=== PATIENT | female | born 1975 | race Hispanic/Latino ===

== ENCOUNTER 2017-12-05 00:12 | Inpatient (IN) | payer BC ==
[~2017-12-05] VITALS: Ht 142.2 cm; Wt 61.7 kg
[2017-12-05 00:40] LABS: BASOPHILS % (AUTO) 0.1 % (0.0-5.0); EOSINOPHILS % (AUTO) 0.1 % (0.0-8.0); HEMATOCRIT 33.7 % (36-48); LYMPHOCYTES % (AUTO) 4.2 % (21.0-51.0); MEAN CORPUSCULAR HEMOGLOBIN 24.8 pg (27.0-33.0); MEAN CORPUSCULAR HGB CONC 32.2 g/dL (32.0-36.0); MEAN CORPUSCULAR VOLUME 77.1 fL (79-99); MONOCYTES % (AUTO) 5.6 % (3.0-13.0); PLATELET COUNT (AUTO) 303 K/uL (130-400); RED BLOOD CELL COUNT(AUTO) 4.38 MIL/uL (4.00-5.50); RED CELL DISTRIBUTION WIDTH 15.9 % (11.0-15.5)
[2017-12-05] MEDS ORDERED: KETOROLAC TROMETHAMINE 30MG/ML ONE (00:43)
[2017-12-05] MEDS ORDERED: ONDANSETRON HCL MDV 20ML 2 MG/ML VIAL ONE ×2 (00:46→02:44)
[2017-12-05] MEDS ORDERED: SODIUM CHLORIDE 0.9% 1000ML 1,000 ML IV ONE ×3 (00:46→03:55)
[2017-12-05 00:53] LABS: CREATININE 0.8 mg/dL (0.5-1.5); POTASSIUM 3.3 mmol/L (3.5-5.1)
[2017-12-05 00:57] LABS: ALBUMIN 3.9 g/dL (3.5-5.0); BILIRUBIN,TOTAL 0.3 mg/dL (0.2-1.0); TOTAL PROTEIN, SERUM 7.5 g/dL (6.0-8.3)
[2017-12-05] MEDS ORDERED: METRONIDAZOLE 500MG/100ML BAG 100 ML ONE (01:45)
[2017-12-05] MEDS ORDERED: LEVOFLOXACIN 750 MG/D5W 150 ML 150 ML ONE (01:45)
[2017-12-05] MEDS ORDERED: MORPHINE SULFATE 2 MG/ML 1ML SYG ONE (02:13)
[2017-12-05] MEDS ORDERED: POTASSIUM CHLORIDE 10% ELIXIR 20 MEQ/15 ML UDCUP ONE (02:13)
[2017-12-05 03:58] LABS: APPEARANCE,URINE Clear (CLEAR); BILIRUBIN,URINE Negative (NEGATIVE); COLOR,URINE Yellow (YELLOW); GLUCOSE, URINE (UA) Negative (NEGATIVE); KETONES,URINE 15 mg/dL (NEGATIVE); LEUKOCYTE ESTERASE ,URINE Negative (NEGATIVE); NITRATE,URINE Negative (NEGATIVE); OCCULT BLOOD,URINE Small (NEGATIVE); PROTEIN,URINE POS 1+ (NEGATIVE)
[2017-12-05 04:00] LABS: BACTERIA,URINE Rare /HPF (None Seen); HCG,QUAL RESULT NEGATIVE (NEGATIVE); SQUAMOUS EPITHELIAL CELL,UR Moderate /HPF (0-2); WBC,URINE None Seen /HPF (0-1)
[2017-12-05] MEDS ORDERED: POTASSIUM CHLORIDE 10% ELIXIR 20 MEQ/15 ML UDCUP PO PRN (04:15)
[2017-12-05] MEDS ORDERED: POTASSIUM CHLORIDE 20MEQ/100ML 100 ML IV PRN (04:15)
[2017-12-05] MEDS ORDERED: LIDOCAINE HCL-MPF 1% 2ML VIAL IVP PRN (04:15)
[2017-12-05] MEDS: SODIUM CHLORIDE 0.9% 1000ML 1,000 ML IV SCH ×2 (04:24→18:36)
[2017-12-05] MEDS ORDERED: MORPHINE SULFATE 4 MG/1ML SYG IVP PRN (04:30)
[2017-12-05] MEDS ORDERED: ACET500C44 PO (05:09)
[2017-12-05] MEDS ORDERED: [UNRECOGNIZED DRUG - CODE] PO (05:09)
[2017-12-05] MEDS ORDERED: HYDR-4060 PO (05:09)
[2017-12-05] MEDS ORDERED: RANI150C4 PO (05:09)
[2017-12-05] MEDS ORDERED: ACET250T28 PO (05:09)
[2017-12-05] MEDS ORDERED: LEVO100T12 PO (05:09)
[2017-12-05 08:00] VITALS: BP 118/69
[2017-12-05] MEDS ORDERED: METRONIDAZOLE 500 MG TABLET PO SCH (08:00)
[2017-12-05] MEDS: FAMOTIDINE/PF 20 MG/2 ML VIAL IV SCH ×2 (10:05→20:29)
[2017-12-05 11:00] VITALS: BP_SYST 119; BP_SYST 137; BP_DIAS 76; BP_DIAS 96
[2017-12-05] MEDS: ONDANSETRON HCL 4 MG/2 ML VIAL IVP PRN ×2 (12:12→20:30)
[2017-12-05] MEDS: METRONIDAZOLE 500MG/100ML BAG 100 ML IV SCH ×2 (14:10→23:04)
[2017-12-05 16:00] VITALS: BP_SYST 123; BP_SYST 152; BP_DIAS 70; BP_DIAS 95
[2017-12-05 19:00] VITALS: BP 128/78
[2017-12-05] MEDS ORDERED: MAGNESIUM 2GM PREMIX 50ML 50 ML IV PRN (20:00)
[2017-12-05] MEDS: POTASSIUM CHLORIDE 20 MEQ ERTAB PO PRN ×2 (20:30→23:23)
[2017-12-05] MEDS: KETOROLAC TROMETHAMINE 30MG/ML IM PRN (20:30)
[2017-12-05 23:59] VITALS: BP 114/68
[2017-12-06] VITALS (20 sets, daily range): BP systolic 101–134; BP diastolic 57–79
[2017-12-06] MEDS: KETOROLAC TROMETHAMINE 30MG/ML IM PRN (04:08)
[2017-12-06] MEDS: LEVOFLOXACIN 500 MG/D5W 100 ML 100 ML IV SCH (04:08)
[2017-12-06] MEDS: SODIUM CHLORIDE 0.9% 1000ML 1,000 ML IV SCH ×2 (04:08→08:48)
[2017-12-06 04:29] LABS: HEMATOCRIT 26.6 % (36-48); MEAN CORPUSCULAR HEMOGLOBIN 25.6 pg (27.0-33.0); MEAN CORPUSCULAR HGB CONC 33.2 g/dL (32.0-36.0); PLATELET COUNT (AUTO) 216 K/uL (130-400); RED BLOOD CELL COUNT(AUTO) 3.46 MIL/uL (4.00-5.50); RED CELL DISTRIBUTION WIDTH 15.8 % (11.0-15.5); WHITE BLOOD COUNT (AUTO) 7.7 K/uL (4.8-10.8)
[2017-12-06 04:51] LABS: ALBUMIN 2.6 g/dL (3.5-5.0); BILIRUBIN,TOTAL 0.3 mg/dL (0.2-1.0); CREATININE 0.6 mg/dL (0.5-1.5); MAGNESIUM 2.1 mg/dL (1.80-2.40); POTASSIUM 3.8 mmol/L (3.5-5.1); TOTAL PROTEIN, SERUM 5.5 g/dL (6.0-8.3)
[2017-12-06 06:10] LABS: INR 0.96 (0.85-1.15); PARTIAL THROMBOPLASTIN TIME 30.6 SEC (26.3-35.5); PROTHROMBIN TIME 10.1 SEC (9.6-11.6)
[2017-12-06] MEDS: METRONIDAZOLE 500MG/100ML BAG 100 ML IV SCH ×3 (06:33→21:44)
[2017-12-06] MEDS: FAMOTIDINE/PF 20 MG/2 ML VIAL IV SCH ×2 (08:48→21:44)
[2017-12-06] MEDS ORDERED: LACTATED RINGERS 1000ML 1,000 ML IV ONE (08:55)
[2017-12-06] MEDS ORDERED: DEXAMETHASONE SOD PHOSPHATE 10MG/ML 1ML VIAL ONE (09:24)
[2017-12-06] MEDS ORDERED: GLYCOPYRROLATE 0.2 MG/ML 5 ML VIAL ONE (09:24)
[2017-12-06] MEDS ORDERED: NEOSTIGMINE 5MG/5ML SYR IV ONE (09:24)
[2017-12-06] MEDS ORDERED: LIDOCAINE PF 2% 5ML ABBOJECT ONE (09:24)
[2017-12-06] MEDS ORDERED: ONDANSETRON HCL 4 MG/2 ML VIAL ONE (09:24)
[2017-12-06] MEDS ORDERED: SUCCINYLCHOLINE 200MG/10ML SYR ONE (09:24)
[2017-12-06] MEDS ORDERED: FENTANYL CITRATE PF 50 MCG/1 ML 2ML VIAL ONE ×2 (09:25→09:54)
[2017-12-06] MEDS ORDERED: MIDAZOLAM HCL 1 MG/ML 2ML VIAL ONE (09:25)
[2017-12-06] MEDS ORDERED: PROPOFOL 10 MG/ML 20ML VIAL IV ONE (09:25)
[2017-12-06] MEDS ORDERED: BUPIVACAINE/PF 0.5% 30ML VIAL ONE (09:27)
[2017-12-06] MEDS: LACTATED RINGERS 1000ML 1,000 ML IV SCH (10:52)
[2017-12-06] MEDS ORDERED: MORPHINE SULFATE 4 MG/1ML SYG IV PRN (11:00)
[2017-12-06] MEDS ORDERED: MEPERIDINE-PF 25 MG/ML SYG ONE ×2 (11:03→11:13)
[2017-12-06] MEDS ORDERED: DOCUSATE SODIUM 100 MG CAP PO ONE ×2 (22:00→23:38)
[2017-12-06] MEDS ORDERED: SIMETHICONE 80 MG TAB.CHEW PO SCH (22:00)
[2017-12-06] MEDS ORDERED: SIMETHICONE 80 MG TAB.CHEW ONE (23:38)
[2017-12-07] MEDS ORDERED: HYDROCODONE/ACETAMINOPHEN 5/325 MG TAB ONE (00:07)
[2017-12-07] MEDS: ONDANSETRON HCL 4 MG/2 ML VIAL IVP PRN ×3 (00:09→12:11)
[2017-12-07] MEDS: LEVOFLOXACIN 500 MG/D5W 100 ML 100 ML IV SCH (00:09)
[2017-12-07] MEDS: LACTATED RINGERS 1000ML 1,000 ML IV SCH (00:12)
[2017-12-07] MEDS: SODIUM CHLORIDE 0.9% 1000ML 1,000 ML IV SCH ×2 (03:35→06:30)
[2017-12-07 04:00] VITALS: BP 112/61
[2017-12-07 05:32] LABS: BASOPHILS % (AUTO) 0.1 % (0.0-5.0); EOSINOPHILS % (AUTO) 0.1 % (0.0-8.0); HEMATOCRIT 22.9 % (36-48); LYMPHOCYTES % (AUTO) 7.3 % (21.0-51.0); MEAN CORPUSCULAR HEMOGLOBIN 25.7 pg (27.0-33.0); MEAN CORPUSCULAR HGB CONC 33.4 g/dL (32.0-36.0); MEAN CORPUSCULAR VOLUME 76.7 fL (79-99); MONOCYTES % (AUTO) 8.8 % (3.0-13.0); NEUTROPHILS % (AUTO) 83.7 % (40.0-77.0); PLATELET COUNT (AUTO) 202 K/uL (130-400); RED BLOOD CELL COUNT(AUTO) 2.98 MIL/uL (4.00-5.50); RED CELL DISTRIBUTION WIDTH 15.7 % (11.0-15.5); WHITE BLOOD COUNT (AUTO) 8.9 K/uL (4.8-10.8)
[2017-12-07 05:51] LABS: ALBUMIN 2.4 g/dL (3.5-5.0); BILIRUBIN,TOTAL 0.2 mg/dL (0.2-1.0); CREATININE 0.6 mg/dL (0.5-1.5); POTASSIUM 3.3 mmol/L (3.5-5.1); TOTAL PROTEIN, SERUM 5.2 g/dL (6.0-8.3)
[2017-12-07] MEDS: METRONIDAZOLE 500MG/100ML BAG 100 ML IV SCH ×2 (06:39→14:27)
[2017-12-07] MEDS: HYDROCODONE/ACETAMINOPHEN 5/325 MG TAB PO PRN ×2 (06:40→13:03)
[2017-12-07 07:00] VITALS: BP 120/69
[2017-12-07] MEDS: FAMOTIDINE/PF 20 MG/2 ML VIAL IV SCH (08:11)
[2017-12-07] MEDS: POTASSIUM CHLORIDE 20 MEQ ERTAB PO PRN (08:12)
[2017-12-07] MEDS: SIMETHICONE 80 MG TAB.CHEW PO SCH ×2 (08:14→14:27)
[2017-12-07] MEDS ORDERED: DOCUSATE SODIUM 100 MG CAP PO SCH (09:00)
[2017-12-07 11:00] VITALS: BP 115/73
[2017-12-07] MEDS ORDERED: TYL3 PO (14:27)
[2017-12-07 16:00] VITALS: BP 104/61
== END 2017-12-07 19:08 | disposition home or self-care (01) | DRG 417 ==
LOC: EDH 00:12 → EDHIP 01:28 → 3AH 03:40
PROVIDERS: ADMIT Family Medicine; ATTEND Family Medicine
PROC: 0FT44ZZ Resection of Gallbladder, Percutaneous Endoscopic Approach (ICD-10-PCS; principal; 2017-12-06 09:35)
DX: K80.00 Calculus of gallbladder with acute cholecystitis without obstruction (principal); K85.10 Biliary acute pancreatitis without necrosis or infection; E87.6 Hypokalemia; D64.9 Anemia, unspecified; E03.9 Hypothyroidism, unspecified; R19.7 Diarrhea, unspecified; E66.01 Morbid (severe) obesity due to excess calories; R74.8 Abnormal levels of other serum enzymes; K66.0 Peritoneal adhesions (postprocedural) (postinfection); Z98.891 History of uterine scar from previous surgery; Z68.30 Body mass index [BMI] 30.0-30.9, adult; Z88.0 Allergy status to penicillin
CPT/HCPCS: 36415; 76705; 80053; 81001; 81025; 82550; 83690; 83735; 84484; 85025; 85027; 85610; 85730; 88304; 93005; J0330; J1100; J1885; J1956; J2001; J2175; J2250; J2270; J2405; J2704; J2710; J3010; J3490; J7030; J7120